=== PATIENT | female | born 1935 | race Caucasian/White ===

== ENCOUNTER 2022-10-16 14:12 | Emergency (ER) | payer MEDICARE, SELFPAY ==
[2022-10-16 14:13] VITALS: BP 155/94; PULSE 62; RESP 16; TEMP 36.2; O2SAT 100; BMI 20.5
--- NOTE | 2022-10-16 15:13 | CT_ITS ---
INDICATION: Trauma, tripped and fall, hit face on concrete EXAMINATION: CT CERVICAL SPINE - CT Spine Cervical W/O Contrast Injection TECHNIQUE: Helically acquired images were obtained of the cervical spine. 2D reformatted images were reviewed. A radiation dose optimization technique was used for this scan. IV Contrast dosage and agent: None. COMPARISON: None. FINDINGS: VERTEBRAE: No acute fracture of the cervical spine. Minimal spondylolisthesis at C2-3, C7-T1. DISCS and SPINAL CANAL: Degenerative discogenic changes. No critical stenosis. NECK SOFT TISSUES: No prevertebral soft tissue swelling. LUNG APICES: No acute pulmonary findings. CT/Spine Cervical without Contras IMPRESSION: Degenerative changes. No acute fracture of the cervical spine. Electronically Signed: Boy Sanabria MD at 16:43 EDT ,
--- NOTE | 2022-10-16 15:13 | CT_ITS ---
INDICATION: Trauma, tripped and fall, hit face on cement EXAMINATION: CT BRAIN - CT Head or Brain W/O Contrast Injection TECHNIQUE: Multiple axial images were obtained of the head without intravenous contrast. A radiation dose optimization technique was used for this scan. IV Contrast dosage and agent: None. COMPARISON: None. FINDINGS: BRAIN PARENCHYMA: No intra- or extra-axial hemorrhage. No evidence of acute infarct. No intracranial mass or mass effect. Posterior fossa structures are unremarkable. Volume loss with low attenuation of the periventricular white matter typical of chronic small vessel disease. CSF SPACES: Appropriate for age. No hydrocephalus. Basal cisterns are patent. CALVARIUM, SKULL BASE, PARANASAL SINUSES AND MASTOID AIR CELLS: Clear. No acute fracture. CT/Brain/Head without Contrast IMPRESSION: Volume loss with chronic white matter changes. No acute intracranial findings. Electronically Signed: Boy Sanabria MD at 16:39 EDT ,
--- NOTE | 2022-10-16 15:13 | CT_ITS ---
INDICATION: Trauma, tripped and fall, hit face on concrete EXAMINATION: CT FACIAL BONES - CT Maxillofacial W/O Contrast Injection TECHNIQUE: Helically acquired images were obtained of the facial bones. A radiation dose optimization technique was used for this scan. IV Contrast dosage and agent: None. COMPARISON: None. FINDINGS: SOFT TISSUES: No focal subcutaneous swelling. No discrete fluid collections. VISUALIZED PARANASAL SINUSES: Mild left maxillary sinus mucoperiosteal thickening. VISUALIZED MASTOID AIR CELLS: Clear. FACIAL BONES, MANDIBLE AND TMJs: No displaced facial bone fracture. No lytic or blastic abnormality. VISUALIZED DENTITION: No periodontal osseous erosion. INDICATION: Trauma, tripped and fall, hit face on concrete EXAMINATION: CT FACIAL BONES - CT Maxillofacial W/O Contrast Injection TECHNIQUE: Helically acquired images were obtained of the facial bones. A radiation dose optimization technique was used for this scan. IV Contrast dosage and agent: None. COMPARISON: None. FINDINGS: ORBITAL CONTENTS: Both globes, extraocular muscles and retrobulbar fat appear unremarkable. CT/Sinus/Facial Bone IMPRESSION: No acute fracture of the maxillofacial bones. Electronically Signed: Boy Sanabria MD at 16:53 EDT ,
--- NOTE | 2022-10-16 15:15 | ED.VIS.FALL ---
HPI HPI - Fall History of Present Illness Chief Complaint: Fall Informant: patient Occured/Mechanism Occurred: Today Narrative Narrative: Patient presents after trip and fall. She states she tripped over a rug and fell forward striking her face on concrete. She did not lose consciousness. She has pain across her nasal bridge and had a upper lip laceration that was bleeding. She denies any dental injury. She is not on anticoagulant. Patient also complains of left foot pain and has ecchymosis around her great toe. PFSH PFSH Medical History Hypertension Home Medications dorzolamide 22.3 mg-timolol 6.8 mg/mL eye drops 1 drp EACH EYE BID 10/16/22 [History Last Taken Unknown] lisinopril 20 mg-hydrochlorothiazide 12.5 mg tablet 1 tab PO DAILY 10/16/22 [History Last Taken Unknown] Allergy/AdvReac Type Severity Reaction Status Date / Time No Known Allergies Allergy Verified 10/16/22 14:16 Social History Smoking Status: Never smoker ROS ROS ED Constitutional Constitutional ED: Denies chills or fever(s) Eyes Eyes: Denies change in vision or discharge from eye(s) ENT ENT ED: Reports other Details: Facial pain including nasal bridge and upper lip. ; Denies discharge from eye(s), rhinorrhea or sore throat Cardiovascular Cardiovascular: Denies chest pain or palpitations Respiratory/Chest Respiratory/Chest: Denies cough or dyspnea Gastrointestinal Gastrointestinal: Denies abdominal pain, nausea or vomiting Genitourinary Genitourinary ED: Denies dysuria Musculoskeletal Musculoskeletal: Reports extremity pain; Denies back pain Integumentary Reports Abrasions; Denies rash Neurologic Neurologic: Denies headache(s) or weakness Psychiatric Psychiatric: Denies anxiety or depression Allergic/Immunologic Allergic/Immunologic ED: Denies lip swelling or urticaria EXAM Physical Exam Const Vital Signs: 10/16/22 14:13 10/16/22 15:02 Temperature 97.2 F L Temperature Source Temporal Pulse Rate 62 Respiratory Rate 16 Respiratory Effort Normal Non-Labored Respiratory Depth Normal Respiratory Pattern Normal Blood Pressure 155/94 H Blood Pressure Mean 114 Pulse Ox 100 Oxygen Delivery Method Room Air Room Air Positive well nourished and well developed General Appearance ED: well developed HEENT Reports normocephalic HEENT Narrative: Early ecchymosis and tenderness over the nasal bridge. No evidence of epistaxis. Small scabbed laceration measuring approximately 4 mm on the upper lip. It does not cross the vermilion border. Teeth are stable with no intraoral injury noted. Ecchymosis noted over the chin. Mandible is stable with no bony tenderness. Eyes PERRL and EOMs intact bilaterally Neck supple Chest Wall inspection of chest normal and palpation of chest normal Resp normal respiratory effort and clear to auscultation bilaterally Cardio regular rate and regular rhythm GI normal to inspection, nondistended, normoactive bowel sounds Palpation: soft Extremity Extremity Narrative: Tenderness to palpation with mild edema and ecchymosis to the left great toe and MCP joint region. No obvious deformity. Good cap refill distally. Neuro oriented x3 and no sensory deficits noted Sensorium / Orientation: alert Motor Exam: strength 5/5 throughout Psych mental status grossly normal MDM MDM MDM Narrative Medical decision making narrative: Patient sent for CT images of the head, C-spine, facial bones. Left foot x-rays obtained to evaluate for fracture. Patient declined anything for pain. Radiography Diagnostic Testing: Clinical Impression(s) from Imaging Studies Brain CT 10/16/22 15:13 IMPRESSION: Volume loss with chronic white matter changes. No acute intracranial findings. Electronically Signed: Boy Sanabria MD at 16:39 EDT , Cervical Spine CT 10/16/22 15:13 IMPRESSION: Degenerative changes. No acute fracture of the cervical spine. Electronically Signed: Boy Sanabria MD at 16:43 EDT , Facial/Sinus 10/16/22 15:13 IMPRESSION: No acute fracture of the maxillofacial bones. Electronically Signed: Boy Sanabria MD at 16:53 EDT , Foot X-Ray 10/16/22 15:20 IMPRESSION: Intra-articular fracture of the first proximal phalanx. Electronically Signed: Boy Sanabria MD at 15:45 EDT , Treatment and Re-Evaluation Narrative: CT scan of the head, C-spine, and facial bones show chronic changes but no evidence of acute injury. Left foot x-ray per my interpretation reveals questionable fracture of the left great toe. Radiology interpretation is reviewed and does feel there is a small intra-articular fracture of the first proximal phalanx. This is discussed with the patient. Her first and second toes are ayo taped together and she will be given a postop shoe. Return instructions provided. Discharge Plan Triage Chief Complaint: Fall ED Provider: Amara Larson Dx/Rx/DC Orders Clinical Impression: Fall, Contusion of face, CHI (closed head injury), Fracture of toe Instructions: ED Facial Contusion, ED Fracture, Foot, ED Head Injury (Adult) Prescriptions: No Action lisinopril-hydrochlorothiazide 20-12.5 mg tablet 1 tab PO DAILY Label Comments: TAKE 1 TABLET BY MOUTH ONCE DAILY IN THE MORNING dorzolamide-timolol 22.3-6.8 mg/mL drops 1 drp EACH EYE BID Label Comments: INSTILL 1 DROP INTO EACH EYE TWICE DAILY Primary Care Provider: Damon Portillo Referrals: Damon Portillo MD [Primary Care Provider] - 1 Week Disposition Disposition: Home, Self Care
--- NOTE | 2022-10-16 15:20 | RAD_ITS ---
INDICATION: Trauma, great toe injury with pain EXAMINATION/TECHNIQUE: X-RAY - LEFT XR Foot Min 3 Views 3 VIEWS COMPARISON: None. FINDINGS: SOFT TISSUES: Soft tissue swelling about the first digit. No radiopaque foreign body. BONES/JOINTS: Mildly displaced and angulated fracture at the distal aspect of the first proximal phalanx, intra-articular involvement present.. Joint spaces anatomically aligned. No sclerotic or destructive changes observed. RAD/Foot min 3 Views IMPRESSION: Intra-articular fracture of the first proximal phalanx. Electronically Signed: Boy Sanabria MD at 15:45 EDT ,
[2022-10-16 17:25] VITALS: RESP 16
== END 2022-10-16 17:25 | disposition home or self-care (01) ==
PROVIDERS: Emergency Provider Emergency Medicine; PCP Family Medicine; Visit Provider Emergency Medicine
DX: S00.83XA Contusion of other part of head, initial encounter (principal); S92.412A Displaced fracture of proximal phalanx of left great toe, initial encounter for closed fracture; I10 Essential (primary) hypertension; Z79.899 Other long term (current) drug therapy; W01.0XXA Fall on same level from slipping, tripping and stumbling without subsequent striking against object, initial encounter
CPT/HCPCS: 70450; 70486; 72125; 73630; 99283